=== PATIENT | male | born 1990 | race Asian ===

== ENCOUNTER 2016-07-10 15:21 | Emergency (ER) | payer OTHER ==
[2016-07-10 15:30] VITALS: RESP 18; TEMP 97.9; O2SAT 96
--- NOTE | 2016-07-10 15:30 | EDPHY ---
H & P Time Seen by Provider: 07/10/16 15:29 HPI/ROS: CHIEF COMPLAINT: Syncope, incidentally noted hyperglycemia HISTORY OF PRESENT ILLNESS: The patient presents to the ED after an episode of syncope. The patient denies any antecedent chest pain or shortness of breath. The patient does report a 2 and half week of polyuria and polydipsia. The patient denies prior history of diabetes but does report a family history of this condition. The patient does not believe he has been screened for diabetes recently. The patient takes no regular medications. He denies any additional complaints. REVIEW OF SYSTEMS: A comprehensive 10 point review of systems is otherwise negative aside from elements mentioned in the history of present illness. Source: Patient Exam Limitations: No limitations - Medical/Surgical History PMH: Past medical history: Noncontributory - Family History Significant Family History: Diabetes - Social History Smoking Status: Never smoked - Physical Exam Exam: General Appearance: Alert, no distress Eyes: Pupils equal and round no pallor or injection ENT, Mouth: Dry mucous membranes Respiratory: There are no retractions, lungs are clear to auscultation Cardiovascular: Tachycardic Gastrointestinal: Abdomen is soft and nontender, no masses, bowel sounds normal Neurological: A&O, normal motor function, normal sensory exam, normal cranial nerves Skin: Warm and dry, no rashes Musculoskeletal: Neck is supple nontender Extremities: symmetrical, full range of motion Psychiatric: Patient is oriented X 3, there is no agitation Constitutional: Initial Vital Signs Temperature (C) 36.6 C 07/10/16 15:28 Heart Rate 112 H 07/10/16 15:28 Respiratory Rate 18 07/10/16 15:28 Blood Pressure 129/96 H 07/10/16 15:28 O2 Sat (%) 96 07/10/16 15:28 O2 Delivery Mode Room Air Allergies/Adverse Reactions: No Known Allergies Allergy (Unverified 07/10/16 15:54) Home Medications: Medication Instructions Recorded Metformin HCl 500 mg PO BID #60 tablet 07/10/16 Medical Decision Making - Diagnostics EKG Interpretation: EKG: Complete interpretation has been separately recorded in the [facility] archive. Summary impression: Sinus rhythm, rate 96 ED Course/Re-evaluation: The patient presents to the ED after an episode of syncope. The patient was placed on a animal ride manager. He had an IV established. He received 2 L of normal saline. The patient reportedly had a fingerstick blood glucose of 490 noted by paramedics. Screening laboratory studies have been sent. The patient has no active complaints of chest pain or shortness of breath. He has a normal neurologic examination. The patient did receive 6 units of IV insulin. He received 2 L of normal saline. The patient has no evidence of diabetic ketoacidosis. I did speak with Dr. Jamie Davis who would be happy to see the patient in follow-up. Additionally, the patient is given the contact number for Dr. Ortega the hospice physician at [facility]. The patient will be started on metformin 500 mg twice daily. The patient's blood sugar was rechecked at 6:15pm and found to be 320. The patient's syncope was likely secondary to dehydration in the setting of newly diagnosed diabetes. The patient has been evaluated multiple times in the emergency department by myself. At 6:15 p.m. his neurologic examination is normal. The patient is comfortable going home. He will start metformin and follow up with the [facility]. Additionally, he is discharged home with customary aftercare instructions and return precautions. Differential Diagnosis: Differential diagnosis considered includes hyperglycemia, dehydration, metabolic abnormality, diabetic ketoacidosis, cardiac arrhythmia - Data Points Laboratory Results: Laboratory Results 07/10/16 15:31 07/10/16 15:31 07/10/16 07/10/16 07/10/16 17:59 15:31 15:28 WBC 7.22 10^3/uL (3.80-9.50) RBC 6.24 10^6/uL (4.40-6.38) Hgb 17.2 g/dL (13.7-17.5) POC Hgb 14.6 gm/dL 16.3 gm/dL (14.5-17.3) (14.5-17.3) Hct 50.3 % (40.0-51.0) POC Hct 43 % 48 % (42.8-50.6) (42.8-50.6) MCV 80.6 L fL (81.5-99.8) MCH 27.6 L pg (27.9-34.1) MCHC 34.2 g/dL (32.4-36.7) RDW 12.8 % (11.5-15.2) Plt Count 189 10^3/uL (150-400) MPV 11.3 fL (8.7-11.7) Neut % (Auto) 57.8 % (39.3-74.2) Lymph % (Auto) 30.7 % (15.0-45.0) [place] % (Auto) 5.8 % (4.5-13.0) Eos % (Auto) 3.7 % (0.6-7.6) Baso % (Auto) 0.6 % (0.3-1.7) Nucleat RBC Rel Count 0.0 % (0.0-0.2) Absolute Neuts (auto) 4.17 10^3/uL (1.70-6.50) Absolute Lymphs (auto) 2.22 10^3/uL (1.00-3.00) Absolute Monos (auto) 0.42 10^3/uL (0.30-0.80) Absolute Eos (auto) 0.27 10^3/uL (0.03-0.40) Absolute Basos (auto) 0.04 10^3/uL (0.02-0.10) Absolute Nucleated RBC 0.00 10^3/uL (0-0.01) Immature Gran % 1.4 H % (0.0-1.1) Immature Gran # 0.10 10^3/uL (0.00-0.10) VBG pH 7.33 (7.31-7.42) POC Sodium 139 mEq/L 134 mEq/L (134-144) (134-144) Sodium 133 L mEq/L (134-144) POC Potassium 4.1 mEq/L 5.8 H mEq/L (3.3-5.0) (3.3-5.0) Potassium 4.9 mEq/L (3.5-5.2) POC Chloride 98 mEq/L 95 L mEq/L (96-108) (96-108) Chloride 94 L mEq/L (97-110) Carbon Dioxide 27 mEq/l (22-31) Anion Gap 12 mEq/L (8-16) POC BUN 7 mg/dL 7 mg/dL (7-23) (7-23) BUN 8 mg/dL (7-23) Creatinine 0.9 mg/dL (0.7-1.3) POC Creatinine 0.8 mg/dL 0.9 mg/dL (0.8-1.5) (0.8-1.5) Estimated GFR > 60 Glucose 503 H* mg/dL (70-100) POC Glucose 375 H mg/dL 496 H mg/dL (70-100) (70-100) Calcium 9.8 mg/dL (8.5-10.4) Medications Given: Discontinued Medications Insulin Human Regular (Humulin R) 6 unit IVP EDNOW ONE Stop: 07/10/16 17:11 Last Admin: 07/10/16 17:30 Dose: 6 units Point of Care Test Results: 07/10/16 07/10/16 15:28 17:59 POC Sodium 134 139 POC Potassium 5.8 H 4.1 POC Chloride 95 L 98 POC BUN 7 7 POC Creatinine 0.9 0.8 POC Glucose 496 H 375 H Departure - Departure Disposition: Home, Routine, Self-Care Clinical Impression: Hyperglycemia, Syncope, Dehydration Condition: Good Instructions: Diabetic Hyperglycemia (ED) Additional Instructions: 1. Please contact Dr. Ortega to schedule a follow-up visit for further evaluation of your newly diagnosed diabetes. If you are unable to be seen by Dr. Ortega this week, please contact Dr. Davis who would be happy to see you as well. 2. Please return to the ED for vomiting, recurrent symptoms of passing out, difficulty breathing, fever or other concerns. Referrals: Sayda Ortega MD [Medical Doctor] - As per Instructions Jamie Davis MD [Medical Doctor] - As per Instructions
[2016-07-10 15:37] LABS: % IMMATURE GRANULYOCYTES 1.4 % (0.0-1.1); ADD DIFF? NO; ADD MORPH? NO; ADD SCAN? NO; ATYPICAL LYMPHOCYTE FLAG 40 (0-99); FRAGMENT RBC FLAG 0 (0-99); HEMATOCRIT 50.3 % (40.0-51.0); HEMOGLOBIN 17.2 g/dL (13.7-17.5); LEFT SHIFT FLG 10 (0-99); LIPEMIA HEMOLYSIS FLAG 90 (0-99); MEAN CELL HEMOGLOBIN 27.6 pg (27.9-34.1); MEAN CELL HEMOGLOBIN CONCENTR. 34.2 g/dL (32.4-36.7); MEAN CELL VOLUME 80.6 fL (81.5-99.8); MEAN PLATELET VOLUME 11.3 fL (8.7-11.7); PLATELET CLUMPS FLAG 0 (0-99); PLATELET COUNT 189 10^3/uL (150-400); RED BLOOD CELL COUNT 6.24 10^6/uL (4.40-6.38); RED CELL DISTRIBUTION WIDTH 12.8 % (11.5-15.2)
[2016-07-10 15:52] LABS: ANION GAP 12 mEq/L (8-16); CALCIUM 9.8 mg/dL (8.5-10.4); CARBON DIOXIDE 27 mEq/l (22-31); CHLORIDE 94 mEq/L (97-110); CREATININE 0.9 mg/dL (0.7-1.3); GLOMERULAR FILTRATION RATE > 60; POTASSIUM 4.9 mEq/L (3.5-5.2); SODIUM 133 mEq/L (134-144)
[2016-07-10 15:59] LABS: GLUCOSE 503 mg/dL (70-100)
[2016-07-10] MEDS ORDERED: INSULIN REGULAR HUMAN 100 UNIT/ML IVP ONE (17:10)
--- NOTE | 2016-07-10 17:15 | CPEKG ---
Heart Rate: 96 RR Interval: 625 P-R Interval: 116 QRSD Interval: 82 QT Interval: 340 QTC Interval: 430 P [place]: 60 QRS [place]: 15 T Wave [place]: 2 EKG Severity - BORDERLINE ECG - EKG Impression: SINUS RHYTHM EKG Impression: BORDERLINE T ABNORMALITIES, INFERIOR LEADS Electronically Signed By: Dannie Damian 10-Jul-2016 21:03:10
[2016-07-10 18:33] VITALS: BP 132/88; PULSE 102
== END 2016-07-10 18:32 | disposition home or self-care (01) ==
DX: R55 Syncope and collapse (principal); E86.0 Dehydration; R73.9 Hyperglycemia, unspecified
CPT/HCPCS: 82947-QW; 96374; J1815